=== PATIENT | female | born 1995 ===

== ENCOUNTER 2024-09-17 08:53 | Outpatient (AMB) | payer MEDICAID, SELFPAY ==
[2024-09-17 09:00] VITALS: BP 105/62; PULSE 60; RESP 16; TEMP 36.1; O2SAT 99; BMI 30.7
--- NOTE | 2024-09-17 09:00 | OBCLNT_ITS ---
Vital Signs 09/17/24 09:00 Height 1.55 m Height Method Stated Weight 73.652 kg Weight Measurement Method Standing Scale BMI 30.7 BP 105/62 Blood Pressure Source Automatic Cuff Blood Pressure Location Left Upper Arm Position Sitting Respiration 16 Pulse 60 Pulse Source Monitor Temp 97.0 F Temp Source Oral Pulse Oximetry (%) 99 Oxygen Delivery Method Room Air Allergies/Home Meds Allergies & Medications Allergies No Known Allergies Allergy (Verified 09/17/24 09:02) Medication Reconciliation prenat.vits,zaria,pye-jeqx-xiarn 1 tab PO QDAY 09/26/23 [History Confirmed 09/17/24] Intake Visit Data Collection New Patient or Established: Established Patient (seen at [facility] within 3 years) Reason for Visit:: New OB Visit Consent obtained for Telemed Visit: No Seen by Clinical Staff ONLY (RN/MA): No Quality Assurance Supervisor Final Required: No Do You Feel Safe at Home: Yes Authorities Contacted: N/A PCP or OBGYN visit in last 3 months: No Hx Now: Yes Are you currently on any form of Control: No Last menstrual period: 07/11/24 Pain Present Currently: No Pain Scale Used: Faustin-Sears/Numerical Pain scale:: 0 Smoking Status Smoking Status: Never smoker Questionnaires Covid-19 Vaccine Questionnaire Has patient been vacinated for Covid-19 Have you been vacinated for Covid-19: Yes PHQ-9 PHQ-2 Over the last 2 weeks, how often have you been bothered by any of the following problems? 1. Little interest or pleasure in doing things: not at all 2. Feeling down, depressed, or hopeless: not at all Total score: 0 Depression screen completed yes Social History Living Situation History Marital Status: Lives With: Family Housing: House Tobacco History Smoking Status: Never smoker Alcohol History Alcohol Intake: Never Alcohol Intake Frequency: holidays/special occasions only Domestic Abuse History Do You Feel Safe at Home: Yes Past Medical History Past Medical History Have you ever been diagnosed with any of the following: Neurological Problems Seizures: No Cardiology Problems Congestive Heart Failure: No Respiratory Problems Chronic Obstructive Pulmonary Disease (COPD): No Tuberculosis: No Stomache/Intestinal Problems Hepatitis: No Genital/Urinary Problems Renal Disease: No Reproductive Problems Endometriosis: No Genital Herpes: No Gonorrhea: No Pelvic Inflammatory Disease: No Previous Pregnancies: Yes (x2) Syphilis: No Uterine Prolapse: No Endocrine Problems Diabetes Mellitus Type 1: No Diabetes Mellitus Type 2: No Other Problems Hospitalization: No Down Syndrome: No Developmental Delay: No Shingles: No Falls: No Blood Transfusions: No Blood Transfusion Reaction: No Anesthesia Reactions: No Organ Transplant: No Chemotherapy: No Radiation Therapy: No Hyperbaric Therapy: No MRSA: No VRSA: No Vancomycin-Resistant Enterococci: No Human Immunodeficiency Virus (HIV): No Chicken Pox: No Measles: No Mumps: No Rubella (Bulgarian Measles): No Pertussis: No Clostridium Difficile: No Cancer: No History of Present Illness HPI Narrative Patient is presenting for her first visit and reports experiencing nausea during this . She has had two episodes of minor vaginal spotting, with no significant bleeding or other complications. This is her fourth , with three previous vaginal deliveries without complications. Patient is not currently taking vitamins and this is her first ultrasound of the current . She denies any history of diabetes, hypertension, or thyroid problems in previous pregnancies. Family history is significant for a cousin's child born with a left arm abnormality that required surgical intervention. OB Initial Visit Menstrual History Menstrual reliability: definite Flow: normal Menstrual regularity: regular Monthly: Yes Age at menarche: 13 On control pills at conception: No OB History : 4 Para: 3 # of Living Children: 3 Delivery History 1st : Child's name: otilio date: 07/13/13 sex: female Delivery type: vaginal weight (lbs): 7000 g History of depression before or after : No 2nd : Child's name: ZHANE date: 03/16/19 sex: male Delivery type: vaginal weight (lbs): 7000 g History of depression before or after : No 3rd : Child's name: COURTNEY date: 09/26/23 sex: female Delivery type: vaginal weight (lbs): 8000 g History of depression before or after : No Infection History & Risk Evaluation History of STDs: none HIV risk evaluation: low risk Hepatitis B risk evaluation: low risk Patient or partner has history of Genital Herpes: No Varicella/chicken pox status: immunized Genetic Screening & History Genetic Screening/Teratology Counseling - Includes patient, baby's father, or anyone in either family with: 1. Patient's age 35 years or older as of estimated date of delivery: No 2. Thalassemia (Slovenian, Slovak, Mediterranean, or Background); MCV less than 80: No 3. Neural Tube Defect (Meningomyelocele, Spina Bifida, or Anencephaly): No 4. Congenital Heart Defect: No 5. Down Syndrome: No 6. Donato-Sachs (Ashkenazi Restorationism, Cajun, [place]): No 7. Brie Disease (Ashkenazi Restorationism): No 8. Familial Dysautonomia (Ashkenazi Restorationism): No 9. Sickle Cell Disease or Trait (): No 10. Hemophilia or other blood disorders: No 11. Muscular Dystrophy: No 12. Cystic Fibrosis: No 13. Comal's Chorea: No 14. Mental Retardation/Autism: No 15. Other inherited genetic or chromosomal disorder: No 16. Maternal Metabolic Disorder (EG,TYPE 1 Diabetes, PKU): No 17. Patient or baby's father had a child with defects not listed above: No 18. Recurrent loss or a stillbirth: No 19. Medications (including supplements, vitamins, herbs or otc drugs)/illicit/recreational drugs/alcohol since last menstrual period: No 20. Any other: No Infection History 1. Live with someone with TB or exposed to TB: No 2. Rash or viral illness since last menstrual period: No 3. Hepatitis B,C: No Other (see comments) Source: [employer] Review of Systems Review of Systems Systems Reviewed: All systems reviewed, normal except as documented Exam General Limitations: no limitations General Appearance: alert, in no apparent distress, comfortable, cooperative, healthy appearing, well developed and well groomed Head Head exam: atraumatic, normocephalic and normal inspection Eye Eye exam: Present normal appearance, PERRL and EOMI ENT ENT exam: Present normal exam, normal oropharynx and mucous membranes moist Neck Neck exam: Present normal inspection, full ROM and trachea midline Chest Chest inspection: Present normal inspection and symmetric chest wall rise Abdominal Abdominal exam: Present soft and normal bowel sounds Extremities Extremities exam: Present normal inspection and full ROM Back Back exam: Present normal inspection and full ROM Psych Psychiatric exam: Present normal affect and normal mood Skin Skin exam: Present warm, dry, intact and normal color Assessment & Plan Diagnosis / Problem List (1) : Status: Acute Plan: : - at 9 weeks 2 days gestation based on ultrasound dating. - Patient reports mild nausea and two episodes of light spotting. - No history of gestational diabetes or hypertension in previous pregnancies. - Family history significant for cousin's child with left arm abnormality. - Current ultrasound shows normal development consistent with gestational age. - Patient not currently taking vitamins. - Prescribe antiemetics for nausea. - Prescribe vitamins. - Order routine laboratory tests. - Schedule follow-up appointment in 4 weeks to review lab results. - Provide ultrasound images to patient. Office Procedures OB Clinic LOC & Office Proc's Nursing/Assessment Patient Status: Initial/New Patient OB Clinic Nursing Assessment: BP Monitoring, Medication Reconciliation, Update PMH in EMR and Vital Signs OB Clinic Coordination of Care: Consent,records obtained, informed consent, Education Simp Pt/Fam, Lab and Imaging orders and Staff clarify orders Special Needs: Heart tones New Patient Charge New Patient Point Assignment: [id number] Established Patient Charge Established Patient Point Charge: EP Level 4 (120-155) Antepartum Initial or Follow-up Antepartum Initial Visit: Yes
== END 2024-09-17 09:53 | disposition home or self-care (01) ==
LOC: HODSOBC 08:53
PROVIDERS: PCP Obstetrics & Gynecology; Supervising Provider Obstetrics & Gynecology; Visit Provider Obstetrics & Gynecology
DX: O26.851 Spotting complicating pregnancy, first trimester (principal); Z3A.09 9 weeks gestation of pregnancy
CPT/HCPCS: 99214; G0463

== ENCOUNTER 2024-10-05 20:21 | Emergency (ER) | payer MEDICAID, SELFPAY ==
[2024-10-05 20:24] VITALS: BMI 31.4
[2024-10-05 20:35] VITALS: BP 106/69; PULSE 72; RESP 18; TEMP 36.7; O2SAT 98
--- NOTE | 2024-10-05 20:41 | XR_ITS ---
Examination: Complete OB ultrasound, less than 14 weeks, transabdominal Date and time of exam: October 04, 2024, 20 0132 hrs. Indications: Vaginal bleeding beginning today Technique: Obstetrical ultrasound images less than 14 weeks performed via transabdominal imaging Findings: A normal shaped single intrauterine gestation is present in the uterus. CRL 5.8 cm corresponds to 12 weeks 2 days gestational age Cardiac motion 153 BPM Ultrasonographic survey of visible and placental structures unremarkable. Amniotic fluid volume appears appropriate for this estimated gestational age. Right ovary 3.1 cm arterial flow Left ovary 2.1 cm arterial flow Impression: Viable intrauterine gestation 12 weeks 2 days.
--- NOTE | 2024-10-05 20:42 | EDNOTE_ITS ---
ED OB Contraction Preg RMI/HPI General Chief complaint: Vaginal Bleeding Stated complaint: 13 wks preg bleeding Time Seen by Provider: 10/05/24 20:40 Arrival date/time: 10/05/24 20:21 28F at approximately 13 weeks and with no significant PMH presents to ED with 2 days of vaginal spotting. Patient denies pelvic pain and dysuria. Limitations: no limitations Related Data Home Medications ?Medication ?Instructions ?Recorded ?Confirmed prenat.vits,zaria,cnx-[id number]-[id number] 1 tab PO QDAY 09/26/23 09/17/24 Previous Rx's ?Medication ?Instructions ?Recorded ondansetron 4 mg disintegrating 4 mg PO Q6H PRN nausea and 09/27/24 tablet vomiting 30 days #120 tabs vitamins no.121-iron 28 1 tab PO QDAY 90 days #90 tabs 09/27/24 mg-folic acid 800 mcg tablet Allergies Allergy/AdvReac Type Severity Reaction Status Date / Time No Known Allergies Allergy Verified 10/05/24 20:27 Review of Systems Review of Systems Systems Reviewed: All systems reviewed, normal except as documented Constitutional Constitutional: Reports system reviewed and no additional complaints, except as documented, Denies fever(s) and Denies headache(s) ENT Ears, Nose, Mouth, and Throat: Denies disequilibrium and Denies headache(s) Cardiovascular Cardiovascular: Reports system reviewed and no additional complaints, except as documented, Denies chest pain and Denies dyspnea Respiratory Respiratory: Reports system reviewed and no additional complaints, except as documented, Denies cough and Denies dyspnea Gastrointestinal Gastrointestinal: Reports system reviewed and no additional complaints, except as documented, Denies abdominal pain, Denies nausea and Denies vomiting Genitourinary Genitourinary: Reports as per HPI and Reports abnormal vaginal bleeding Neurologic Neurologic: Reports system reviewed and no additional complaints, except as documented, Denies confusion, Denies disequilibrium and Denies headache(s) Psychiatric Psychiatric: Denies confusion Past Medical History Past Medical History NEUROLOGIC: Negative Neurological Disorders or Seizures CARDIAC: Negative Cardiac Disorders or Congestive Heart Failure RESPIRATORY: Negative Chronic Obstructive Pulmonary Disease (COPD) or Tuberculosis GASTROINTESTINAL: Negative Gastrointestinal Disorders or Hepatitis GENITOURINARY: Negative Genitourinary Disorders or Renal Disease REPRODUCTIVE: Positive Previous Pregnancies (x2); Negative Endometriosis, Genital Herpes, Gonorrhea, Pelvic Inflammatory Disease, Syphilis or Uterine Prolapse MUSCULOSKELETAL: Negative Musculoskeletal Disorders ENDOCRINE: Negative Endocrine Disorders, Diabetes Mellitus Type 1 or Diabetes Mellitus Type 2 HEMATOLOGIC: Negative Blood Disorders OTHER HISTORY: Negative Hospitalization, Autoimmune Disease, Down Syndrome, Developmental Delay, Shingles, Falls, Blood Transfusions, Blood Transfusion Reaction, Anesthesia Reactions, Organ Transplant, Chemotherapy, Radiation Therapy, Hyperbaric Therapy, MRSA, VRSA, Vancomycin-Resistant Enterococci, Human Immunodeficiency Virus (HIV), Chicken Pox, Measles, Mumps, Rubella (Slovenian Measles), Pertussis, Clostridium Difficile or Cancer Family History FAMILY HISTORY: Negative Family Psychiatric Problems, Family Respiratory Disorders, Family Cardiac Disorders, Family Gastrointestinal Problems, Family Cancer, Family Surgery or Family Anesthesia Reaction Surgical History SURGICAL: Negative Section or Organ Transplant Social History SMOKING STATUS: Never smoker ED Exam General Limitations: Present no limitations General appearance: Present alert and in no apparent distress Head Head exam: Present atraumatic Eye Eye exam: Present normal appearance, PERRL and EOMI ENT ENT exam: Present normal exam, normal oropharynx and mucous membranes moist Neck Neck exam: Present normal inspection, full ROM and trachea midline Chest Chest inspection: Present normal inspection and symmetric chest wall rise Respiratory Respiratory exam: Present normal lung sounds bilaterally Cardiovascular Cardiovascular exam: Present regular rate, normal rhythm and normal heart sounds Abdominal Exam Abdominal exam: Present soft and normal bowel sounds Extremities Exam Extremities exam: Present normal inspection and full ROM Back Exam Back exam: Present normal inspection and full ROM Neurological Exam Neurological exam: Present alert, oriented X3 and CN II-XII intact Psychiatric Psychiatric exam: Present normal affect and normal mood Skin Skin exam: Present warm, dry, intact and normal color Course Quality Measures none Orders Category Date Time Status US OB <= 14 weeks fetus Stat Exams 10/05/24 20:41 Completed ABO/RH Type Stat Lab 10/05/24 20:48 Completed Beta HCG,Quantitative Stat Lab 10/05/24 20:48 Completed CBC Stat Lab 10/05/24 20:48 Completed CMP [Comprehensive Metabolic Panel] Stat Lab 10/05/24 20:48 Completed UA [Urinalysis] Stat Lab 10/05/24 21:49 Completed Urine Culture Stat Lab 10/05/24 21:49 Received Vital Signs Vital signs: Vital Signs Temperature 98.1 F 10/05/24 20:35 Pulse Rate 72 10/05/24 20:35 Respiratory Rate 18 10/05/24 20:35 Blood Pressure 106/69 10/05/24 20:35 Pulse Oximetry (%) 98 10/05/24 20:35 Oxygen Delivery Method Room Air 10/05/24 20:35 O2 at 98% on RA and WNLs Vaginal Bleeding MDM Narrative MDM Narrative: 28F at approximately 13 weeks and with no significant PMH presents to ED with 2 days of vaginal spotting. Patient denies pelvic pain and dysuria. Physical exam reveals no ab/pelvic tenderness. Patient is afebrile, calm, and alert. US normal IUP with normal FHR. Beta WNLs. UA clean. CMP unremarkable. A+. Moving Consultant given. Patient data External records reviewed:: [facility] previous records Clinical information provided by:: patient Social determinants that could affect healthcare access:: none Patient has the following chronic illnesses:: none How is presenting disease/condition affected by chronic disease/condition?: no chronic disease Evaluation data The following diagnostics were reviewed and interpreted by me:: lab results and radiology exam(s) Lab and/or radiology exams considered but not ordered:: ordered Interpretation Summary: above Medications / Prescriptions Medications or Prescriptions considered but not ordered:: not ordered Medication administrations:: n/a Consultations Consultation(s) initiated? (list below): No Diagnosis Vaginal Bleeding Differential Diagnosis: missed , threatened , dysfunctional uterine bleeding, menometrorrhagia, incomplete , ectopic without intrauterine and vaginal bleeding Most likely diagnosis given after review of the tests above:: vaginal bleeding Admission Indicated Admission indicated?: not indicated Admission Request Was there a request for admission?: No Disposition Plan Disposition Plan: Discharge Discharge Attestation Discharge Attestation: The patient and all family members were given an opportunity to ask questions and understood the discharge instructions. Discharge instructions specifically effects, indications for sooner follow up or return to the emergency department, and the expected course of current diagnosis. Patient condition: Stable Discharge Plan Plan Patient Disposition: HOME (Self Care) Disposition Comment: Stable Prescriptions/Referrals Prescriptions/Med Rec: No Action PNV no.179-ngyn-[id number] acid 28 mg iron- 800 mcg tablet 1 tab PO QDAY 90 Days Qty: 90 5RF ondansetron 4 mg tablet,disintegrating 4 mg PO Q6H PRN (Reason: nausea and vomiting) 30 Days Qty: 120 1RF Vitamin Tablet 1 tab PO QDAY Referrals: No Primary/Family,Physician [Primary Care Provider] - In 1 week Problem List Clinical Impression: Vaginal bleeding Patient/Caregiver Discharge Instructions Additional Instructions: Please follow-up with PCP/OBGYN within 24-48 hours and return immediately if symptoms worsen. Print Language: Yi Stand Alone Forms: Patient Portal Info Letter PA/NEUROLOGY EPILEPSY PHYSICIAN Supervising Physician PA/NEUROLOGY EPILEPSY PHYSICIAN Supervising Physician: Dr. Kahn
[2024-10-05 21:22] LABS: Basophils % (Auto) 0 % (0-2.5); Eosinophils # (Auto) 0.1 Thou/mm3 (0.0-0.5); Eosinophils % (Auto) 1 % (0-10); Hematocrit 37.2 % (36.0-46.0); Hemoglobin 12.7 g/dL (12.0-16.0); Immature Granulocytes % (Auto) 0 % (0-0); Immature Granulocytes Auto 0.02 Thou/mm3 (0.00-0.00); Lymphocytes # (Auto) 2.9 Thou/mm3 (1.0-4.8); Lymphocytes % (Auto) 30 % (10-50); Mean Corpuscular HGB Conc 34.1 g/dl (31.0-37.0); Mean Corpuscular Hemoglobin 28.5 pg (25.0-35.0); Mean Corpuscular Volume 84 fL (80-100); Monocytes # (Auto) 0.7 Thou/mm3 (0.0-0.8); Monocytes % (Auto) 7 % (0-12); Neutrophils # (Auto) 5.9 Thou/mm3 (1.8-7.7); Neutrophils % (Auto) 61 % (37-80); Nucleated Red Blood Cell % 0 /100 WBC (0); Platelet Count 224 Thou/mm3 (140-440); RDW Standard Deviation 40.9 fL (36.4-46.3); Red Blood Count 4.45 Miln/mm3 (4.00-5.20); White Blood Count 9.7 Thou/mm3 (3.6-11.0)
[2024-10-05 21:38] LABS: Alanine Aminotransferase 12 U/L (10-49); Albumin/Globulin Ratio 1.3 (1.2-2.2); Alkaline Phosphatase 45 U/L (46-116); Anion Gap 8 (7-16); Aspartate Amino Transferase 16 U/L (0-34); BUN/Creatinine Ratio 20 Ratio (12-20); Bilirubin,Total 0.3 mg/dL (0.3-1.2); Blood Urea Nitrogen 10 mg/dL (9-23); Calcium 9.5 mg/dL (8.3-10.6); Calcium (Corrected) 9.5 mg/dL (8.5-10.1); Carbon Dioxide 23.8 mMol/L (20.0-31.0); Chloride 107 mMol/L (98-107); Creatinine (Component) 0.5 mg/dL (0.6-1.3); Estimated Creatinine Clearance 156.9 mL/min (>60); Glucose 107 mg/dL (74-106); Osmolality,Calculated 276 (275-295); Potassium 4.3 mMol/L (3.4-5.1); Sodium 139 mMol/L (136-145); eGFR > 60 See Note
[2024-10-05 21:53] LABS: Collection Type, Urine Clean Catch; RBC,Urine 0 /hpf (0-3); WBC,Urine 0 /hpf (0-5)
[2024-10-05 22:02] LABS: Bacteria,Urine Rare; Bilirubin,Urine Negative (Negative); Blood,Urine Negative (Negative); Clarity,Urine Clear (Clear/Hazy); Color,Urine Lt-Yellow (Lt Yel-Yel); Glucose, Urine Negative (Negative); Ketones,Urine Negative (Negative); Leukocyte Esterase,Urine Negative (Negative); Nitrite,Urine Negative (Negative); PH,Urine 6.5 (5.0-7.0); Protein,Urine Negative (Neg - Trace); Squamous Epithelial Cell,Urine 4 /hpf (0-5); Urobilinogen,Urine Negative mg/dL (0.0-1.0)
[2024-10-05 22:19] LABS: Beta HCG,Quantitative 89767 mIU/mL (<5.0)
== END 2024-10-05 22:54 | disposition home or self-care (01) ==
PROVIDERS: Physician Assistant; Emergency Provider Emergency Medicine
DX: O20.9 Hemorrhage in early pregnancy, unspecified (principal); Z3A.13 13 weeks gestation of pregnancy
CPT/HCPCS: 36415; 76801; 80053; 81001; 84702; 85025; 86900; 86901; 87086; 99284

== ENCOUNTER 2024-10-14 09:11 | Outpatient (AMB) | payer MEDICAID, SELFPAY ==
--- NOTE | 2024-10-14 09:24 | OBCLNT_ITS ---
Vital Signs 10/14/24 09:25 Height 1.55 m Height Method Stated Weight 74.389 kg Weight Measurement Method Standing Scale BMI 30.9 BP 105/70 Blood Pressure Source Automatic Cuff Blood Pressure Location Left Upper Arm Position Sitting Respiration 16 Pulse 84 Pulse Source Monitor Temp 97.2 F Temp Source Oral Pulse Oximetry (%) 96 Oxygen Delivery Method Room Air Allergies/Home Meds Allergies & Medications Allergies No Known Allergies Allergy (Verified 10/14/24 09:25) Medication Reconciliation prenat.vits,zaria,[id number] 1 tab PO QDAY 09/26/23 [History Confirmed 10/14/24] ondansetron 4 mg disintegrating tablet 4 mg PO Q6H PRN nausea and vomiting 30 days #120 tabs 09/27/24 [Rx Confirmed 10/14/24] vitamins no.121-iron 28 mg-folic acid 800 mcg tablet 1 tab PO QDAY 90 days #90 tabs 09/27/24 [Rx Confirmed 10/14/24] Intake Visit Data Collection New Patient or Established: Established Patient (seen at [facility] within 3 years) Reason for Visit:: OBC Seen by Clinical Staff ONLY (RN/MA): No Magnetic Locater Required: No Do You Feel Safe at Home: Yes Authorities Contacted: N/A PCP or OBGYN visit in last 3 months: No Hx Now: Yes Are you currently on any form of Control: No Last menstrual period: 09/17/24 Pain Present Currently: No Pain Scale Used: Faustin-Sears/Numerical Pain scale:: 0 Smoking Status Smoking Status: Never smoker Questionnaires Covid-19 Vaccine Questionnaire Has patient been vacinated for Covid-19 Have you been vacinated for Covid-19: No PHQ-9 PHQ-2 Over the last 2 weeks, how often have you been bothered by any of the following problems? 1. Little interest or pleasure in doing things: not at all 2. Feeling down, depressed, or hopeless: not at all Total score: 0 PHQ-9 3. Trouble falling or staying asleep, or sleeping too much: Not at all 4. Feeling tired or having little energy: Not at all 5. Poor appetite or overeating: Not at all 6. Feeling bad about yourself - or that you are a failure or have let yourself or your family down: Not at all 7. Trouble concentrating on things, such as reading the newspaper or watching television: Not at all 8. Moving or speaking so slowly that other people could have noticed? - Or the opposite - being so fidgety or restless that you have been moving around a lot more than usual: not at all 9. Thoughts that you would be better off or of hurting yourself in some way: Not at all Total score: 0 If you checked off any problems, how difficult have these problems made it for you to do your work, take care of things at home, or get along with other people?: not difficult at all Source: Developed by Drs. Patrick Nelson, Traci Gunter, Mayo Fang and colleagues, with an educational daphney from [employer]. Depression screen completed yes Social History Living Situation History Lives With: Family Housing: House Tobacco History Smoking Status: Never smoker Alcohol History Alcohol Intake: Never Alcohol Intake Frequency: holidays/special occasions only Domestic Abuse History Do You Feel Safe at Home: Yes Past Medical History Past Medical History Have you ever been diagnosed with any of the following: Neurological Problems Seizures: No Cardiology Problems Congestive Heart Failure: No Respiratory Problems Chronic Obstructive Pulmonary Disease (COPD): No Tuberculosis: No Stomache/Intestinal Problems Hepatitis: No Genital/Urinary Problems Renal Disease: No Reproductive Problems Endometriosis: No Genital Herpes: No Gonorrhea: No Pelvic Inflammatory Disease: No Previous Pregnancies: Yes (x2) Syphilis: No Uterine Prolapse: No Endocrine Problems Diabetes Mellitus Type 1: No Diabetes Mellitus Type 2: No Other Problems Hospitalization: No Down Syndrome: No Developmental Delay: No Shingles: No Falls: No Blood Transfusions: No Blood Transfusion Reaction: No Anesthesia Reactions: No Organ Transplant: No Chemotherapy: No Radiation Therapy: No Hyperbaric Therapy: No MRSA: No VRSA: No Vancomycin-Resistant Enterococci: No Human Immunodeficiency Virus (HIV): No Chicken Pox: No Measles: No Mumps: No Rubella (Tajik Measles): No Pertussis: No Clostridium Difficile: No Cancer: No History of Present Illness HPI Narrative History of Present Illness Yoly Bernal, a 28-year-old , presents for a visit at 13 weeks and 1 day gestation based on an estimated due date of 04/20/2025. She had an initial visit at 9 weeks gestation. Subsequently, at 12 weeks and 2 days gestation (10/05/2024), she presented to the ER with an episode of vaginal bleeding. At that time, ultrasound confirmed a viable intrauterine with cardiac activity of 153 bpm, and the overall ultrasound was reported as normal. The patient underwent NIPT (Non-Invasive Testing) on 09/21/2024, which was negative for trisomies 21, 18, and 13. The test also indicated gender consistent with male. No CTX/LOF/VB Review of Systems Review of Systems Systems Reviewed: All systems reviewed, normal except as documented Visit DERREK Calculator Estimated Delivery Date Method Current WG Current Estimate 04/20/25 Ultrasound #1 14w 5d Other Estimates 04/17/25 LMP (Uncertain) 15w 1d Exam General Limitations: no limitations General Appearance: alert, in no apparent distress, comfortable, cooperative, healthy appearing, well developed and well groomed Head Head exam: atraumatic, normocephalic and normal inspection Neck Neck exam: Present normal inspection, full ROM and trachea midline Chest Chest inspection: Present normal inspection and symmetric chest wall rise Abdominal Abdominal exam: Present soft and normal bowel sounds Extremities Extremities exam: Present normal inspection and full ROM Back Back exam: Present normal inspection and full ROM Psych Psychiatric exam: Present normal affect and normal mood Skin Skin exam: Present warm, dry, intact and normal color Assessment & Plan Diagnosis / Problem List (1) Supervision of high risk , unspecified, first trimester: Status: Acute Plan: Intrauterine at 13 weeks 1 day gestation 28-year-old patient presenting for visit at 13 weeks 1 day gestation based on DERREK of 04/20/2025. Patient had an episode of vaginal bleeding at 12 weeks 2 days, evaluated in ER on 10/05/2024. ER ultrasound showed viable intrauterine with cardiac activity of 153 bpm and overall normal findings. Current office ultrasound demonstrates heartbeat of 156 bpm. NIPT results negative for trisomies 21, 18, and 13. gender consistent with male. - Follow-up appointment scheduled in 4 weeks - Detailed ultrasound with specialist (Dr. Tuttle) scheduled for tomorrow - Await specialist ultrasound report for further assessment (2) : Status: Acute Additional Assessment Educated the patient on labor signs, including regular contractions, lower back pain, and changes in vaginal discharge. Advised avoiding heavy lifting and getting adequate rest. Instructed to contact the office immediately if any signs occur. Discussed the importance of a balanced diet rich in folic acid, iron, and calcium, and provided a list of recommended and to-avoid foods. Emphasized avoiding high-sugar foods to reduce gestational diabetes risk. Encouraged hydration and frequent, small meals for energy. Office Procedures OB Clinic LOC & Office Proc's Nursing/Assessment Patient Status: Established Patient OB Clinic Nursing Assessment: BP Monitoring, Medication Reconciliation, Update PMH in EMR and Vital Signs OB Clinic Coordination of Care: Consent,records obtained, informed consent, Results/Orders obtained and Staff clarify orders Special Needs: Heart tones Miscellaneous Interventions: Blood/Urine Collection Established Patient Charge Established Patient Point Assignment: 125 Established Patient Point Charge: EP Level 4 (120-155)
[2024-10-14 09:25] VITALS: BP 105/70; PULSE 84; RESP 16; TEMP 36.2; O2SAT 96; BMI 30.9
== END 2024-10-14 09:54 | disposition home or self-care (01) ==
LOC: HODSOBC 09:11
PROVIDERS: Supervising Provider Obstetrics & Gynecology; Visit Provider Obstetrics & Gynecology
DX: O09.91 Supervision of high risk pregnancy, unspecified, first trimester (principal); Z3A.13 13 weeks gestation of pregnancy
CPT/HCPCS: 99214; G0463

== ENCOUNTER 2024-11-13 10:07 | Outpatient (AMB) | payer MEDICAID, SELFPAY ==
--- NOTE | 2024-11-13 10:17 | OBCLNT_ITS ---
Vital Signs 11/13/24 10:38 Height 1.55 m Height Method Stated Weight 73.992 kg Weight Measurement Method Standing Scale BMI 30.8 BP 104/64 Blood Pressure Source Automatic Cuff Blood Pressure Location Left Upper Arm Position Sitting Respiration 18 Pulse 70 Pulse Source Monitor Temp 97.2 F Temp Source Oral Pulse Oximetry (%) 98 Oxygen Delivery Method Room Air Allergies/Home Meds Allergies & Medications Allergies No Known Allergies Allergy (Verified 11/13/24 10:39) Medication Reconciliation prenat.vits,zaria,[id number]-[id number] 1 tab PO QDAY 09/26/23 [History Confirmed 11/13/24] ondansetron 4 mg disintegrating tablet 4 mg PO Q6H PRN nausea and vomiting 30 days #120 tabs 09/27/24 [Rx Confirmed 11/13/24] vitamins no.121-iron 28 mg-folic acid 800 mcg tablet 1 tab PO QDAY 90 days #90 tabs 09/27/24 [Rx Confirmed 11/13/24] Intake Visit Data Collection New Patient or Established: Established Patient (seen at [facility] within 3 years) Reason for Visit:: OBC Seen by Clinical Staff ONLY (RN/MA): No Retail Management Keyholder Required: No Do You Feel Safe at Home: Yes Authorities Contacted: N/A PCP or OBGYN visit in last 3 months: Yes Date of Last PCP or OBGYN visit: 10/14/24 Hx Now: Yes Are you currently on any form of Control: No Pain Present Currently: No Pain Scale Used: Faustin-Sears/Numerical Pain scale:: 0 Smoking Status Smoking Status: Never smoker Questionnaires PHQ-9 PHQ-2 Over the last 2 weeks, how often have you been bothered by any of the following problems? 1. Little interest or pleasure in doing things: not at all 2. Feeling down, depressed, or hopeless: not at all Total score: 0 PHQ-9 3. Trouble falling or staying asleep, or sleeping too much: Not at all 4. Feeling tired or having little energy: Not at all 5. Poor appetite or overeating: Not at all 6. Feeling bad about yourself - or that you are a failure or have let yourself or your family down: Not at all 7. Trouble concentrating on things, such as reading the newspaper or watching television: Not at all 8. Moving or speaking so slowly that other people could have noticed? - Or the opposite - being so fidgety or restless that you have been moving around a lot more than usual: not at all 9. Thoughts that you would be better off or of hurting yourself in some way: Not at all Total score: 0 If you checked off any problems, how difficult have these problems made it for you to do your work, take care of things at home, or get along with other people?: not difficult at all Source: Developed by Drs. Patrick Nelson, Traci Gunter, Mayo Fang and colleagues, with an educational daphney from [employer]. Depression screen completed yes Social History Living Situation History Marital Status: Single Lives With: Family Housing: House Tobacco History Smoking Status: Never smoker Alcohol History Alcohol Intake: Never Alcohol Intake Frequency: holidays/special occasions only Domestic Abuse History Do You Feel Safe at Home: Yes Past Medical History Past Medical History Have you ever been diagnosed with any of the following: Neurological Problems Seizures: No Cardiology Problems Congestive Heart Failure: No Respiratory Problems Chronic Obstructive Pulmonary Disease (COPD): No Tuberculosis: No Stomache/Intestinal Problems Hepatitis: No Genital/Urinary Problems Renal Disease: No Reproductive Problems Endometriosis: No Genital Herpes: No Gonorrhea: No Pelvic Inflammatory Disease: No Previous Pregnancies: Yes (x2) Syphilis: No Uterine Prolapse: No Endocrine Problems Diabetes Mellitus Type 1: No Diabetes Mellitus Type 2: No Other Problems Hospitalization: No Down Syndrome: No Developmental Delay: No Shingles: No Falls: No Blood Transfusions: No Blood Transfusion Reaction: No Anesthesia Reactions: No Organ Transplant: No Chemotherapy: No Radiation Therapy: No Hyperbaric Therapy: No MRSA: No VRSA: No Vancomycin-Resistant Enterococci: No Human Immunodeficiency Virus (HIV): No Chicken Pox: No Measles: No Mumps: No Rubella (Israeli Measles): No Pertussis: No Clostridium Difficile: No Cancer: No Visit OB Visit Log OB Flowsheet Initial Weight: Not Recorded Date -?-?-?-?-?-?-?-?-?-?-?-?- EGA Weight Edema CTX Effacement BP Fundal ht Pres Dilation Effacement Station Visit Note Alb Glu FHR Mov 11/13/24 -?-?-?-?-?-?-?-?-?-?-?-?- 17w 3d 73.992 kg absent absent 104/64 17 unknown 28-year-old 4 para 3 for OB check. Denies any SAB complaints. Reports slight movement. Nausea and vomiting are improved. Compliant with vitamins. Next MFM visit December 03, 2024. aFP today. Return in 4 weeks OB check. UA:pro-,NIT-,francesca:trace 125 active DERREK Calculator Estimated Delivery Date Method Current WG Current Estimate 04/20/25 Ultrasound #1 17w 3d Other Estimates 04/17/25 LMP (Uncertain) 17w 6d Expected Delivery Route/Plan vaginal Assessment & Plan Diagnosis / Problem List (1) Encounter for supervision of normal in multigravida in second trimester: Status: Acute Plan Continue vitamins and iron. Discussed diet. Decrease sugary foods. Walk 40 minutes a day. Discussed SAB precautions. Keep maternal- medicine appointment November. Return in 4 weeks OB check Additional Plan Follow Up: 4 Weeks (4 wk OBC) Office Procedures OB Clinic LOC & Office Proc's Nursing/Assessment Patient Status: Established Patient OB Clinic Nursing Assessment: BP Monitoring, Medication Reconciliation, Update PMH in EMR and Vital Signs OB Clinic Coordination of Care: Education Complex Pt/Fam, Education Simp Pt/Fam and Staff clarify orders Special Needs: Heart tones Established Patient Charge Established Patient Point Assignment: 120 Established Patient Point Charge: EP Level 4 (120-155)
[2024-11-13 10:38] VITALS: BP 104/64; PULSE 70; RESP 18; TEMP 36.2; O2SAT 98; BMI 30.8
== END 2024-11-13 10:48 | disposition home or self-care (01) ==
LOC: HODSOBC 10:07
PROVIDERS: PCP Obstetrics & Gynecology; Referring Provider Obstetrics & Gynecology; Supervising Provider Obstetrics & Gynecology; Visit Provider Obstetrics & Gynecology
DX: Z34.82 Encounter for supervision of other normal pregnancy, second trimester (principal); Z3A.17 17 weeks gestation of pregnancy
CPT/HCPCS: 99214; G0463

== ENCOUNTER 2024-12-17 14:29 | Outpatient (AMB) | payer MEDICAID, SELFPAY ==
[2024-12-17 15:17] VITALS: BP 101/63; PULSE 77; RESP 18; TEMP 36.1; O2SAT 97; BMI 32.0
--- NOTE | 2024-12-17 15:17 | OBCLNT_ITS ---
Vital Signs 12/17/24 15:17 Height 1.55 m Height Method Stated Weight 76.884 kg Weight Measurement Method Standing Scale BMI 32.0 BP 101/63 Blood Pressure Source Automatic Cuff Blood Pressure Location Left Upper Arm Position Sitting Respiration 18 Pulse 77 Pulse Source Monitor Temp 97 F Temp Source Oral Pulse Oximetry (%) 97 Oxygen Delivery Method Room Air Allergies/Home Meds Allergies & Medications Allergies No Known Allergies Allergy (Verified 12/17/24 15:18) Medication Reconciliation prenat.vits,zaria,rvh-ijkb-hiday 1 tab PO QDAY 09/26/23 [History Confirmed 12/17/24] ondansetron 4 mg disintegrating tablet 4 mg PO Q6H PRN nausea and vomiting 30 days #120 tabs 09/27/24 [Rx Confirmed 12/17/24] vitamins no.121-iron 28 mg-folic acid 800 mcg tablet 1 tab PO QDAY 90 days #90 tabs 09/27/24 [Rx Confirmed 12/17/24] Intake Visit Data Collection New Patient or Established: Established Patient (seen at [facility] within 3 years) Reason for Visit:: OBC Seen by Clinical Staff ONLY (RN/MA): No Door Frame Builder Required: No Do You Feel Safe at Home: Yes Authorities Contacted: N/A PCP or OBGYN visit in last 3 months: Yes Date of Last PCP or OBGYN visit: 11/13/24 Hx Now: Yes Are you currently on any form of Control: No Pain Present Currently: No Pain Scale Used: Faustin-Sears/Numerical Pain scale:: 0 Smoking Status Smoking Status: Never smoker Questionnaires Covid-19 Vaccine Questionnaire Has patient been vacinated for Covid-19 Have you been vacinated for Covid-19: Yes PHQ-9 PHQ-2 Over the last 2 weeks, how often have you been bothered by any of the following problems? 1. Little interest or pleasure in doing things: not at all 2. Feeling down, depressed, or hopeless: not at all Total score: 0 PHQ-9 3. Trouble falling or staying asleep, or sleeping too much: Not at all 4. Feeling tired or having little energy: Not at all 5. Poor appetite or overeating: Not at all 6. Feeling bad about yourself - or that you are a failure or have let yourself or your family down: Not at all 7. Trouble concentrating on things, such as reading the newspaper or watching television: Not at all 8. Moving or speaking so slowly that other people could have noticed? - Or the opposite - being so fidgety or restless that you have been moving around a lot more than usual: not at all 9. Thoughts that you would be better off or of hurting yourself in some way: Not at all Total score: 0 If you checked off any problems, how difficult have these problems made it for you to do your work, take care of things at home, or get along with other people?: not difficult at all Source: Developed by Drs. Patrick Nelson, Traci Gunter, Mayo Fang and colleagues, with an educational daphney from [employer]. 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 Denies any SAB complaints. Reports slight movement. Nausea and vomiting are improved. Compliant with vitamins. Next M visit December 03, 2024. aFP today. Return in 4 weeks OB check. UA:pro-,NIT-,francesca:trace 12/17/24 -?-?-?-?-?-?-?-?-?-?-?-?- 22w 5d 76.884 kg 101/63 absent unknown 22 155 active fetus active. no PTL complaints. denies bleeding,no ptl complaints ob panel. f/u mfm 02/16. discuss ptl symptom. increase fluid. 3rd tri lab [place] DERREK Calculator Estimated Delivery Date Method Current WG Current Estimate 04/17/25 Ultrasound #2 22w 5d Other Estimates 04/17/25 LMP (Uncertain) 22w 5d 04/20/25 Ultrasound #1 22w 2d Expected Delivery Route/Plan vaginal Notes Visit Date: 12/17/24 Last Updated by: Barbara Bee, ELAINA 28 yo. lmp 07/11/24. edc 04/17/25. NIPT and carrier screen wnl Office Procedures OB Clinic LOC & Office Proc's Nursing/Assessment Patient Status: Established Patient OB Clinic Nursing Assessment: Medication Reconciliation, Update PMH in EMR and Vital Signs OB Clinic Coordination of Care: Complex Care and Chronic Disease 1-5, Consent,records obtained, informed consent, Education Simp Pt/Fam, Lab and Imaging orders, Results/Orders obtained and Staff clarify orders Established Patient Charge Established Patient Point Assignment: 105 Established Patient Point Charge: EP Level 3 (80-115) Assessment & Plan Diagnosis / Problem List (1) Encounter for supervision of normal in multigravida in second trimester: Status: Acute Plan discuss PTL precaution. increase fluid. keep MFM f/u 02/16, 3rd tri labs [place]. rtc 4 week Additional Plan Follow Up: 4 Weeks (obc)
== END 2024-12-17 15:34 | disposition home or self-care (01) ==
LOC: HODSOBC 14:29
PROVIDERS: Supervising Provider Obstetrics & Gynecology; Visit Provider Advanced Practice Midwife
DX: Z34.82 Encounter for supervision of other normal pregnancy, second trimester (principal); Z3A.22 22 weeks gestation of pregnancy
CPT/HCPCS: 99213; G0463

== ENCOUNTER 2025-02-17 13:40 | Outpatient (AMB) | payer MEDICAID, SELFPAY ==
[2025-02-17 13:47] VITALS: BP 103/63; PULSE 79; RESP 17; TEMP 36.4; O2SAT 98; BMI 32.5
--- NOTE | 2025-02-17 13:47 | OBCLNT_ITS ---
Vital Signs 02/17/25 13:47 Height 1.55 m Height Method Stated Weight 78.075 kg Weight Measurement Method Standing Scale BMI 32.5 BP 103/63 Blood Pressure Source Automatic Cuff Blood Pressure Location Right Upper Arm Position Sitting Respiration 17 Pulse 79 Pulse Source Monitor Temp 97.6 F Temp Source Temporal Artery Scan Pulse Oximetry (%) 98 Oxygen Delivery Method Room Air Allergies/Home Meds Allergies & Medications Allergies No Known Allergies Allergy (Verified 02/17/25 13:48) Medication Reconciliation prenat.vits,zaria,ynw-ghaq-tlthu 1 tab PO QDAY 09/26/23 [History Confirmed 01/22 03/17] ondansetron 4 mg disintegrating tablet 4 mg PO Q6H PRN nausea and vomiting 30 days #120 tabs 09/27/24 [Rx Confirmed 02/17/25] vitamins no.121-iron 28 mg-folic acid 800 mcg tablet 1 tab PO QDAY 90 days #90 tabs 09/27/24 [Rx Confirmed 02/17/25] Intake Visit Data Collection New Patient or Established: Established Patient (seen at [facility] within 3 years) Reason for Visit:: OBC 31W4D Seen by Clinical Staff ONLY (RN/MA): No Laboratory Chemist Required: No Do You Feel Safe at Home: Yes Authorities Contacted: N/A PCP or OBGYN visit in last 3 months: Yes Date of Last PCP or OBGYN visit: 12/17/24 Hx Now: Yes Are you currently on any form of Control: No Pain Present Currently: No Pain Scale Used: Faustin-Sears/Numerical Pain scale:: 0 Smoking Status Smoking Status: Never smoker Questionnaires Covid-19 Vaccine Questionnaire Has patient been vacinated for Covid-19 Have you been vacinated for Covid-19: No PHQ-9 PHQ-2 Over the last 2 weeks, how often have you been bothered by any of the following problems? 1. Little interest or pleasure in doing things: not at all 2. Feeling down, depressed, or hopeless: not at all Total score: 0 PHQ-9 3. Trouble falling or staying asleep, or sleeping too much: Not at all 4. Feeling tired or having little energy: Not at all 5. Poor appetite or overeating: Not at all 6. Feeling bad about yourself - or that you are a failure or have let yourself or your family down: Not at all 7. Trouble concentrating on things, such as reading the newspaper or watching television: Not at all 8. Moving or speaking so slowly that other people could have noticed? - Or the opposite - being so fidgety or restless that you have been moving around a lot more than usual: not at all 9. Thoughts that you would be better off or of hurting yourself in some way: Not at all Total score: 0 If you checked off any problems, how difficult have these problems made it for you to do your work, take care of things at home, or get along with other people?: not difficult at all Source: Developed by Drs. Patrick Nelson, Traci Gunter, Mayo Fang and colleagues, with an educational daphney from [employer]. 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 Denies any SAB complaints. Reports slight movement. Nausea and vomiting are improved. Compliant with vitamins. Next MFM visit December 03, 2024. aFP today. Return in 4 weeks OB check. UA:pro-,NIT-,francesca:trace 12/17/24 -?-?-?-?-?-?-?-?-?-?-?-?- 22w 5d 76.884 kg 101/63 absent unknown 22 155 active fetus active. no PTL complaints. denies bleeding,no ptl complaints ob panel. f/u mfm 02/16. discuss ptl symptom. increase fluid. 3rd tri lab NV 02/17/25 -?-?-?-?-?-?-?-?-?-?--?-?- 31w 4d 78.075 kg 103/63 absent cephalic 30 145 active No OB complaints. Denies leaking bleeding or contractions. Reports good movement. Patient has a follow-up MFM appointment February 27. Patient declined Tdap today. No other OB complaints 3rd tri lab with A1c, f/u mfm 01/27/25. declined TDAP. discuss fkc. ptl precaution, hydrate. rtc 2 week DERREK Calculator Estimated Delivery Date Method Current WG Current Estimate 04/17/25 LMP (Uncertain) 31w 4d Other Estimates 04/20/25 Ultrasound #1 31w 1d 04/17/25 Ultrasound #2 31w 4d Expected Delivery Route/Plan vaginal Notes Visit Date: 12/17/24 Last Updated by: Barbara Bee, ELAINA 28 yo. lmp 07/11/24. edc 04/17/25. NIPT and carrier screen wnl Office Procedures OB Clinic LOC & Office Proc's Nursing/Assessment Patient Status: Established Patient OB Clinic Nursing Assessment: Medication Reconciliation, Update PMH in EMR and Vital Signs OB Clinic Coordination of Care: Complex Care and Chronic Disease 1-5, Consent,records obtained, informed consent, Education Simp Pt/Fam and Staff clarify orders Special Needs: Heart tones Established Patient Charge Established Patient Point Assignment: 115 Established Patient Point Charge: EP Level 3 (80-115) Assessment & Plan Diagnosis / Problem List (1) Encounter for supervision of normal in multigravida in third trimester: Status: Acute Plan Third trimester labs with A1c today. Patient declined Tdap. Follow-up MFM ultrasound. Discussed labor precautions labor precautions kick count increase fluids problems return in 2 weeks OB check Additional Plan Follow Up: 2 Weeks (OBC)
== END 2025-02-17 14:18 | disposition home or self-care (01) ==
LOC: HODSOBC 13:40
PROVIDERS: Supervising Provider Advanced Practice Midwife; Visit Provider Advanced Practice Midwife
DX: Z34.83 Encounter for supervision of other normal pregnancy, third trimester (principal); Z3A.31 31 weeks gestation of pregnancy; Z28.21 Immunization not carried out because of patient refusal
CPT/HCPCS: 99213; G0463

== ENCOUNTER 2025-02-28 15:33 | Outpatient (AMB) | payer MEDICAID, SELFPAY ==
--- NOTE | 2025-02-28 15:45 | OBCLNT_ITS ---
Vital Signs 02/28/25 15:46 Height 1.55 m Height Method Measured Weight 78.471 kg Weight Measurement Method Standing Scale BMI 32.6 BP 108/68 Blood Pressure Source Automatic Cuff Blood Pressure Location Right Upper Arm Position Sitting Respiration 17 Pulse 88 Pulse Source Monitor Temp 98.0 F Temp Source Temporal Artery Scan Pulse Oximetry (%) 98 Oxygen Delivery Method Room Air Allergies/Home Meds Allergies & Medications Allergies No Known Allergies Allergy (Verified 02/28/25 15:46) Medication Reconciliation prenat.vits,zaria,ayk-qyfq-pdyqn 1 tab PO QDAY 09/26/23 [History Confirmed ] ondansetron 4 mg disintegrating tablet 4 mg PO Q6H PRN nausea and vomiting 30 days #120 tabs 09/27/24 [Rx Confirmed 02/28/25] vitamins no.121-iron 28 mg-folic acid 800 mcg tablet 1 tab PO QDAY 90 days #90 tabs 09/27/24 [Rx Confirmed 02/28/25] nitrofurantoin monohydrate/macrocrystals 100 mg capsule (Macrobid) 100 mg PO BID 7 days #14 caps 02/28/25 [Rx Confirmed 02/28/25] Intake Visit Data Collection New Patient or Established: Established Patient [place] [facility] [place] Reason for Visit:: [facility] Consent obtained for Telemed Visit: No Seen by Clinical Staff ONLY (RN/MA): No Protection Specialist Required: No Do You Feel Safe at Home: Yes Authorities Contacted: N/A PCP or OBGYN visit in last 3 months: Yes Date of Last PCP or OBGYN visit: 02/17/25 Hx Now: Yes Are you currently on any form of Control: No Pain Present Currently: No Pain Scale Used: Faustin-Sears/Numerical Pain scale:: 0 Smoking Status Smoking Status: Never smoker Questionnaires Covid-19 Vaccine Questionnaire Has patient been vacinated for Covid-19 Have you been vacinated for Covid-19: No PHQ-9 PHQ-2 Over the last 2 weeks, how often have you been bothered by any of the following problems? 1. Little interest or pleasure in doing things: not at all PHQ-9 8. Moving or speaking so slowly that other people could have noticed? - Or the opposite - being so fidgety or restless that you have been moving around a lot more than usual: not at all Source: Developed by Drs. Patrick Nelson, Traci Gunter, Mayo Fang and colleagues, with an educational daphney from [employer]. 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 Denies any SAB complaints. Reports slight movement. Nausea and vomiting are improved. Compliant with vitamins. Next MFM visit December 03, 2024. aFP today. Return in 4 weeks OB check. UA:pro-,NIT-,francesca:trace 12/17/24 -?-?-?-?-?-?-?-?-?-?-?-?- 22w 5d 76.884 kg 101/63 absent unknown 22 155 active fetus active. no PTL complaints. denies bleeding,no ptl complaints ob panel. f/u mfm 02/16. discuss ptl symptom. increase fluid. 3rd tri lab NV 02/17/25 -?-?-?-?-?-?-?-?-?-?-?-?- 31w 4d 78.075 kg 103/63 absent cephalic 30 145 active No OB complaints. Denies leaking bleeding or contractions. Reports good movement. Patient has a follow-up MFM appointment February 27. Patient declined Tdap today. No other OB complaints 3rd tri lab with A1c, f/u [facility] 01/27/25. declined TDAP. discuss fkc. ptl precaution, hydrate. rtc 2 week 02/28/25 -?-?-?-?-?-?-?-?-?-?-?-?- 33w 1d 78.471 kg 108/68 absent cephalic 32 145 active No OB complaints. MFM appointment was in February 27. Reports good movement. Patient will do 3-hour GTT. I did discuss diet and GDM diet. Discussed kick count twice a day. I discussed GDM diet and weight. Patient to walk 40 minutes twice a day. Gave patient lab slip to do 3-hour GTT. Return in 2 weeks OB check DERREK Calculator Estimated Delivery Date Method Current WG Current Estimate 04/17/25 LMP (Uncertain) 33w 1d Other Estimates 04/20/25 Ultrasound #1 32w 5d 04/17/25 Ultrasound #2 33w 1d Expected Delivery Route/Plan vaginal Notes Visit Date: 02/28/25 Last Updated by: Barbara Bee CNM 02/26/25 sono: 32w6, EFW 48%, OB sono: A+, abs-, rpr;;nr, rub ni, HBSAG-,hiv-,HC-, GC/CT-, +ECOLI: tx with macrobid, 1hr gtt: 153 Visit Date: 12/17/24 Last Updated by: Barbara Bee CNM 28 yo. lmp 07/11/24. edc 04/17/25. NIPT and carrier screen wnl Office Procedures OB Clinic LOC & Office Proc's Nursing/Assessment Patient Status: Established Patient OB Clinic Nursing Assessment: Medication Reconciliation, Update PMH in EMR and Vital Signs OB Clinic Coordination of Care: Complex Care and Chronic Disease 1-5, Consent,records obtained, informed consent, Education Simp Pt/Fam, 4+ Authorizations needed, Lab and Imaging orders and Results/Orders obtained Special Needs: Heart tones Established Patient Charge Established Patient Point Assignment: 150 Established Patient Point Charge: EP Level 3 (80-115) Assessment & Plan Diagnosis / Problem List (1) Encounter for supervision of normal in multigravida in third trim alison: Status: Acute Plan Order 3-hour GTT. Discussed GDM diet. Increase exercise to 40 minutes a day. Discussed labor precautions. Increase fluids. Macrobid 100 twice daily ordered for positive UTI. Return in 2 weeks OB check Additional Plan Follow Up: 2 Weeks (obc)
[2025-02-28 15:46] VITALS: BP 108/68; PULSE 88; RESP 17; TEMP 36.7; O2SAT 98; BMI 32.6
== END 2025-02-28 16:00 | disposition home or self-care (01) ==
LOC: HODSOBC 15:33
PROVIDERS: Supervising Provider Advanced Practice Midwife; Visit Provider Advanced Practice Midwife
DX: O09.893 Supervision of other high risk pregnancies, third trimester (principal); Z3A.33 33 weeks gestation of pregnancy; O23.43 Unspecified infection of urinary tract in pregnancy, third trimester
CPT/HCPCS: 99213; G0463

== ENCOUNTER 2025-03-14 14:42 | Outpatient (AMB) | payer MEDICAID, SELFPAY ==
--- NOTE | 2025-03-14 15:04 | OBCLNT_ITS ---
Vital Signs 03/14/25 15:06 Height 1.55 m Height Method Stated Weight 79.492 kg Weight Measurement Method Standing Scale BMI 33.0 BP 105/64 Blood Pressure Source Automatic Cuff Blood Pressure Location Left Upper Arm Position Sitting Respiration 16 Pulse 71 Pulse Source Monitor Temp 97.7 F Temp Source Oral Pulse Oximetry (%) 98 Oxygen Delivery Method Room Air Allergies/Home Meds Allergies & Medications Allergies No Known Allergies Allergy (Verified 03/14/25 15:07) Medication Reconciliation prenat.vits,zaria,bsu-ztqj-jmcuq 1 tab PO QDAY 09/26/23 [History Confirmed 03/14/25] ondansetron 4 mg disintegrating tablet 4 mg PO Q6H PRN nausea and vomiting 30 days #120 tabs 09/27/24 [Rx Confirmed 03/14/25] vitamins no.121-iron 28 mg-folic acid 800 mcg tablet 1 tab PO QDAY 90 days #90 tabs 09/27/24 [Rx Confirmed 03/14/25] Intake Visit Data Collection New Patient or Established: Established Patient (seen at [facility] within 3 years) Reason for Visit:: CARE Seen by Clinical Staff ONLY (RN/MA): 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 1. Little interest or pleasure in doing things: not at all 2. Feeling down, depressed, or hopeless: not at all Total score: 0 PHQ-9 3. Trouble falling or staying asleep, or sleeping too much: Not at all 4. Feeling tired or having little energy: Not at all 5. Poor appetite or overeating: Not at all 6. Feeling bad about yourself - or that you are a failure or have let yourself or your family down: Not at all 7. Trouble concentrating on things, such as reading the newspaper or watching television: Not at all 8. Moving or speaking so slowly that other people could have noticed? - Or the opposite - being so fidgety or restless that you have been moving around a lot more than usual: not at all 9. Thoughts that you would be better off or of hurting yourself in some way: Not at all Total score: 0 Source: Developed by Drs. Patrick Nelson, Traci Gunter, Mayo Fang and colleagues, with an educational daphney from [employer]. 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 Denies any SAB complaints. Reports slight movement. Nausea and vomiting are improved. Compliant with vitamins. Next [facility] visit December 03, 2024. aFP today. Return in 4 weeks OB check. UA:pro-,NIT-,francesca:trace 12/17/24 -?-?-?-?-?-?-?-?-?-?-?-?- 22w 5d 76.884 kg 101/63 absent unknown 22 155 active fetus active. no PTL complaints. denies bleeding,no ptl complaints ob panel. f/u mfm 02/16. discuss ptl symptom. increase fluid. 3rd tri lab NV 02/17/25 -?-?-?-?-?-?-?-?-?-?-?-?- 31w 4d 78.075 kg 103/63 absent cephalic 30 145 active No OB complaints. Denies leaking bleeding or contractions. Reports good movement. Patient has a follow-up MFM appointment February 27. Patient declined Tdap today. No other OB complaints 3rd tri lab with A1c, f/u mfm 01/27/25. declined TDAP. discuss fkc. ptl precaution, hydrate. rtc 2 week 02/28/25 -?-?-?-?-?-?-?-?-?-?-?-?- 33w 1d 78.471 kg 108/68 absent cephalic 32 145 active No OB complaints. MFM appointment was in February 27. Reports good movement. Patient will do 3-hour GTT. I did discuss diet and GDM diet. Discussed kick count twice a day. I discussed GDM diet and weight. Patient to walk 40 minutes twice a day. Gave patient lab slip to do 3-hour GTT. Return in 2 weeks OB check 03/14/25 -?-?-?-?-?-?-?-?-?-?-?-?- 35w 1d 79.492 kg 105/64 occasional cephalic 34 145 active Reports good movement. Denies leaking, denies bleeding, denies contractions. 3-hour GTT is normal. Discussed GTT. Increase fluids. Discussed kick count twice a day. Discussed danger signs and symptoms ER precautions. GBS today DERREK Calculator Estimated Delivery Date Method Current WG Current Estimate 04/17/25 LMP (Uncertain) 35w 1d Other Estimates 04/20/25 Ultrasound #1 34w 5d 04/17/25 Ultrasound #2 35w 1d Expected Delivery Route/Plan vaginal Notes Visit Date: 03/14/25 Last Updated by: Barbara Bee CNM 03/14: 3hr gtt wnl Visit Date: 02/28/25 Last Updated by: Barbara Bee CNM 02/26/25 sono: 32w6, EFW 48%, OB sono: A+, abs-, rpr;;nr, rub ni, HBSAG-,hiv-,HC-, GC/CT-, +ECOLI: tx with macrobid, 1hr gtt: 153 Visit Date: 12/17/24 Last Updated by: Barbara Bee, ELAINA 28 yo. lmp 07/11/24. edc 04/17/25. NIPT and carrier screen wnl Office Procedures OB Clinic LOC & Office Proc's Nursing/Assessment Patient Status: Established Patient OB Clinic Nursing Assessment: Medication Reconciliation, Update PMH in EMR and Vital Signs OB Clinic Coordination of Care: Complex Care and Chronic Disease 1-5, Consent,records obtained, informed consent, Education Simp Pt/Fam, 1 Ins Authorization, Lab and Imaging orders, Results/Orders obtained and Staff clarify orders Special Needs: Heart tones Established Patient Charge Established Patient Point Assignment: 150 Established Patient Point Charge: EP Level 4 (120-155) Assessment & Plan Diagnosis / Problem List (1) Encounter for supervision of normal in multigravida in third trimester: Status: Acute Plan GBS today. Discussed 3-hour GTT. Increase fluids. Discussed diet and rest. Kick counts twice a day. Discussed PTL precautions. Return in 2 weeks OB check Additional Plan Follow Up: 2 Weeks (obc)
[2025-03-14 15:06] VITALS: BP 105/64; PULSE 71; RESP 16; TEMP 36.5; O2SAT 98; BMI 33.0
== END 2025-03-14 15:34 | disposition home or self-care (01) ==
LOC: HODSOBC 14:42
PROVIDERS: Supervising Provider Advanced Practice Midwife; Visit Provider Advanced Practice Midwife
DX: Z34.83 Encounter for supervision of other normal pregnancy, third trimester (principal); Z3A.35 35 weeks gestation of pregnancy; Z36.85 Encounter for antenatal screening for Streptococcus B
CPT/HCPCS: 99214; G0463

== ENCOUNTER 2025-04-09 14:31 | Outpatient (AMB) | payer MEDICAID, SELFPAY ==
[2025-04-09 14:56] VITALS: BP 111/69; PULSE 72; RESP 14; TEMP 36.6; O2SAT 98; BMI 33.7
--- NOTE | 2025-04-09 14:56 | OBCLNT_ITS ---
Vital Signs 04/09/25 14:56 Height 1.55 m Height Method Stated Weight 81.193 kg Weight Measurement Method Standing Scale BMI 33.7 BP 111/69 Blood Pressure Source Automatic Cuff Blood Pressure Location Left Upper Arm Position Sitting Respiration 14 Pulse 72 Pulse Source Monitor Temp 97.9 F Temp Source Oral Pulse Oximetry (%) 98 Oxygen Delivery Method Room Air Allergies/Home Meds Allergies & Medications Allergies No Known Allergies Allergy (Verified 04/09/25 14:57) Medication Reconciliation prenat.vits,zaria,yyf-jzvd-uhrck 1 tab PO QDAY 09/26/23 [History Confirmed 04/09/25] ondansetron 4 mg disintegrating tablet 4 mg PO Q6H PRN nausea and vomiting 30 days #120 tabs 09/27/24 [Rx Confirmed 04/09/25] vitamins no.121-iron 28 mg-folic acid 800 mcg tablet 1 tab PO QDAY 90 days #90 tabs 09/27/24 [Rx Confirmed 04/09/25] Intake Visit Data Collection New Patient or Established: Established Patient (seen at [facility] within 3 years) Reason for Visit:: CARE Seen by Clinical Staff ONLY (RN/MA): No Coil Taper Required: No Do You Feel Safe at Home: Yes Authorities Contacted: N/A PCP or OBGYN visit in last 3 months: Yes Hx Now: Yes Are you currently on any form of Control: No Pain Present Currently: No Pain Scale Used: [place]-Sears/Numerical Pain scale:: 0 Smoking Status Smoking Status: Never smoker Questionnaires Covid-19 Vaccine Questionnaire Has patient been vacinated for Covid-19 Have you been vacinated for Covid-19: No PHQ-9 PHQ-2 Over the last 2 weeks, how often have you been bothered by any of the following problems? 1. Little interest or pleasure in doing things: not at all 2. Feeling down, depressed, or hopeless: not at all Total score: 0 PHQ-9 3. Trouble falling or staying asleep, or sleeping too much: Not at all 4. Feeling tired or having little energy: Not at all 5. Poor appetite or overeating: Not at all 6. Feeling bad about yourself - or that you are a failure or have let yourself or your family down: Not at all 7. Trouble concentrating on things, such as reading the newspaper or watching television: Not at all 8. Moving or speaking so slowly that other people could have noticed? - Or the opposite - being so fidgety or restless that you have been moving around a lot more than usual: not at all 9. Thoughts that you would be better off or of hurting yourself in some way: Not at all Total score: 0 Source: Developed by Drs. Patrick Nelson, Traci Gunter, Mayo Fang and colleagues, with an educational daphney from [employer]. Depression screen completed yes Social History Living Situation History Lives With: Family Housing: House Tobacco History Smoking Status: Never smoker Second Hand Smoke Exposure: No Alcohol History Alcohol Intake: Never Alcohol Intake Frequency: holidays/special occasions only Domestic Abuse History Do You Feel Safe at Home: Yes ANALYSIS LEAD: Past Medical History Past Medical History: No Hx Neurological Disorders, No Hx Cardiac Disorders, No Hx Cancer, No Hx Blood Disorders, No Hx Gastrointestinal Disorders, No Hx Renal Disease, No Hx Diabetes Mellitus Type 1 and No Hx Diabetes Mellitus Type 2 Care OB Visit Log OB Flowsheet Initial Weight: Not Recorded Date -?-?-?-?-?-?-?-?-?-?-?-?- EGA Weight BP Alb Glu CTX Pres Fundal ht FHR Mov Dilation Station Effacement Hx Notes Visit Note 11/13/24 -?-?-?-?-?-?-?-?-?-?-?-?- 17w 6d 73.992 kg 104/64 absent unknown 17 125 active 28-year-old 4 para 3 for OB check. Denies any SAB complaints. Reports slight movement. Nausea and vomiting are improved. Compliant with vitamins. Next [facility] visit December 03, 2024. aFP today. Return in 4 weeks OB check. UA:pro-,NIT-,francesca:trace 12/17/24 -?-?-?-?-?-?-?-?-?-?-?-?- 22w 5d 76.884 kg 101/63 absent unknown 22 155 active fetus active. no PTL complaints. denies bleeding,no ptl complaints ob panel. f/u mfm 02/16. discuss ptl symptom. increase fluid. 3rd tri lab [place] 02/17/25 -?-?-?-?-?-?-?-?-?-?-?-?- 31w 4d 78.075 kg 103/63 absent cephalic 30 145 active No OB complaints. Denies leaking bleeding or contractions. Reports good movement. Patient has a follow-up MFM appointment February 27. Patient declined Tdap today. No other OB complaints 3rd tri lab with A1c, f/u mfm 01/27/25. declined TDAP. discuss fkc. ptl precaution, hydrate. rtc 2 week 02/28/25 -?-?-?-?-?-?-?-?-?-?-?-?- 33w 1d 78.471 kg 108/68 absent cephalic 32 145 active No OB complaints. MFM appointment was in February 27. Reports good movement. Patient will do 3-hour GTT. I did discuss diet and GDM diet. Discussed kick count twice a day. I discussed GDM diet and weight. Patient to walk 40 minutes twice a day. Gave patient lab slip to do 3-hour GTT. Return in 2 weeks OB check 03/14/25 -?-?-?-?-?-?-?-?-?-?-?-?- 35w 1d 79.492 kg 105/64 occasional cephalic 34 145 active Reports good movement. Denies leaking, denies bleeding, denies contractions. 3-hour GTT is normal. Discussed GTT. Increase fluids. Discussed kick count twice a day. Discussed danger signs and symptoms ER precautions. GBS today 04/09/25 -?-?-?-?-?-?-?-?-?-?-?-?- 38w 6d 81.193 kg 111/69 occasional cephalic 38 145 active Denies leaking, denies bleeding, denies contractions. Reports good movement. Patient first day of disability was February 03, 2025. Patient assisted with disability forms. Discussed labor precautions. Discussed kick count. Discussed negative GBS. Return in 1 week OB DERREK Calculator Estimated Delivery Date Method Current WG Current Estimate 04/17/25 LMP (Uncertain) 38w 6d Other Estimates 04/20/25 Ultrasound #1 38w 3d 04/17/25 Ultrasound #2 38w 6d 04/17/25 Manual 38w 6d final derrek Expected Delivery Route/Plan vaginal Notes Visit Date: 04/09/25 Last Updated by: Barbara Bee CNM 04/09/25: GBS- Visit Date: 03/14/25 Last Updated by: Barbara Bee CNM 03/14: 3hr gtt wnl Visit Date: 02/28/25 Last Updated by: Barbara Bee CNM 02/26/25 sono: 32w6, EFW 48%, OB sono: A+, abs-, rpr;;nr, rub ni, HBSAG-,hiv-,HC-, GC/CT-, +ECOLI: tx with macrobid, 1hr gtt: 153 Visit Date: 12/17/24 Last Updated by: Barbara Bee CNM 28 yo. lmp 07/11/24. edc 04/17/25. NIPT and carrier screen wnl Office Procedures OB Clinic LOC & Office Proc's Nursing/Assessment Patient Status: Established Patient OB Clinic Nursing Assessment: Medication Reconciliation, Update PMH in EMR and Vital Signs OB Clinic Coordination of Care: Complex Care and Chronic Disease 1-5, Consent,records obtained, informed consent, Education Simp Pt/Fam, Lab and Imaging orders, Results/Orders obtained and Staff clarify orders Special Needs: Heart tones Established Patient Charge Established Patient Point Assignment: 135 Established Patient Point Charge: EP Level 4 (120-155) Assessment & Plan Diagnosis / Problem List (1) Encounter for supervision of normal in multigravida in third trimester: Status: Acute Plan Assist patient with disability. Discussed labor precautions and kick count. Discussed danger signs symptoms and ER precautions. Discussed GBS. Kick counts twice a day. And return in a week OB check Additional Plan Follow Up: 1 Week (obc)
== END 2025-04-09 15:17 | disposition home or self-care (01) ==
LOC: HODSOBC 14:31
PROVIDERS: Supervising Provider Advanced Practice Midwife; Visit Provider Advanced Practice Midwife
DX: Z34.83 Encounter for supervision of other normal pregnancy, third trimester (principal); Z3A.38 38 weeks gestation of pregnancy
CPT/HCPCS: 99214; G0463

== ENCOUNTER 2025-04-12 01:17 | Inpatient (IN) | payer MEDICAID, SELFPAY ==
[2025-04-12] VITALS (16 sets, daily range): BP systolic 100–128; BP diastolic 56–81; PULSE 53–67; RESP 14–100; TEMP 36.7–37.1; O2SAT 96–97; BMI 31.5
[2025-04-12] MEDS: RINGERS LACTATED 1000 ML 1,000 ML 100 ML IV (02:14)
[2025-04-12] MEDS: Ampicillin Inj 2,000 MG in SODIUM CHLORIDE 0.9% (POP) 100 ML 200 MG IV (02:14)
[2025-04-12 02:29] LABS: Amphetamine/Metham Scrn,Ur OB Negative (Negative); Benzoylecgonine Screen, Ur OB Negative (Negative); Opiate Screen,Urine OB Negative (Negative); THC Screen,Urine OB Negative (Negative)
[2025-04-12 02:34] LABS: Basophils # (Auto) 0.0 Thou/mm3 (0.0-0.2); Basophils % (Auto) 0 % (0-2.5); Eosinophils # (Auto) 0.1 Thou/mm3 (0.0-0.5); Eosinophils % (Auto) 1 % (0-10); Hematocrit 35.9 % (36.0-46.0); Hemoglobin 11.5 g/dL (12.0-16.0); Immature Granulocytes Auto 0.05 Thou/mm3 (0.00-0.00); Lymphocytes # (Auto) 3.3 Thou/mm3 (1.0-4.8); Lymphocytes % (Auto) 31 % (10-50); Mean Corpuscular HGB Conc 32.0 g/dl (31.0-37.0); Mean Corpuscular Hemoglobin 26.1 pg (25.0-35.0); Mean Corpuscular Volume 82 fL (80-100); Monocytes # (Auto) 0.9 Thou/mm3 (0.0-0.8); Monocytes % (Auto) 9 % (0-12); Neutrophils # (Auto) 6.3 Thou/mm3 (1.8-7.7); Neutrophils % (Auto) 59 % (37-80); Nucleated Red Blood Cell # 0.00 Thou/mm3 (0.00-0.00); Nucleated Red Blood Cell % 0 /100 WBC (0); Platelet Count 209 Thou/mm3 (140-440); RDW Standard Deviation 40.7 fL (36.4-46.3); Red Blood Count 4.40 Miln/mm3 (4.00-5.20); White Blood Count 10.7 Thou/mm3 (3.6-11.0)
[2025-04-12] MEDS: OXYTOCIN in NS 20 units 20 UNIT/1,000 ML BAG 125 UNIT IV (02:40)
--- NOTE | 2025-04-12 02:55 | PD.LDDELS ---
Data ([place]) Data Hx Section: No Maternal Blood Type: A Pos Rubella Titre: Negative RPR: Non-reactive Labs: Negative: RPR, Hepatitis B, HIV, Chlamydia, Gonorrhea and Group Beta Strep : 4 Term: 3 : 0 Livin Abortions: Spontaneous & Theraputic: 0 Delivery Data ([place]) Labor Data Initiation of labor: Spontaneous Induction/Augmentation Agent: None ROM date: 04/12/25 ROM time: 02:32 Amniotic membrane rupture type: Artificial Amniotic fluid description: Clear Delivery Data EDC: 04/17/25 EDC calculated by:: LMP/early US confirmation Date of arrival to unit: 04/12/25 Time of arrival to unit: 01:16 Onset of labor date: 04/11/25 Onset of labor time: 23:30 Complete dilation date: 04/12/25 Complete dilation time: 02:30 [place] delivery date: 04/12/25 [place] delivery time: 02:34 Gestational age (weeks): 39 Gestational age (days): 2 Placenta delivery date: 04/12/25 Placenta delivery time: 02:40 Stage 1 total time: Labor - Stage 1 Duration 3 hours and 0 minutes Delivered by: Layla Mae (OB Clinic) Delivery nurse[facility]AIN [facility] nurse: VIKKI RNC Dolly Operator at delivery: No Support person(s) at delivery: GRANDMOTHER Other staff at delivery: ZHENG RNC Delivery Method Delivery method: Normal Vaginal Delivery Presentation: Vertex position: OA Anesthesia Type Anesthesia Type: None Anesthesia type: None Delivery Room Medications Delivery room medications: Pitocin 20 u IV Placenta Placenta delivery description: Spontaneous Cord blood sent to lab: Yes cord blood collection: Cord Blood Type Episiotomy Episiotomy description: None EBL Estimated blood loss (ml): 50 Umbilical Cord cord description: 3 Vessels Additional Procedures The patient is a 29-year-old -0-0-3 with all care uncomplicated with the [facility] OB clinic with Barbara Bee CNM, who presented to triage in active labor 5 cm dilated at 0116 on 04/12/2025. Patient's group B strep status was unknown. One dose of ampicillin was ordered. The patient went on to rapidly progress to complete without the aid of any augmentation by 0230. I ruptured her bag approximately 0232. She then pushed through one contraction delivering a liveborn male at 0234. Findings: liveborn male in the [place]ALESKA presentation with no nuchal cord and no meconium .Apgars were 9 and 9 weight was 3270 g or approximately 7 pounds 3 ounces. The baby was vigorous at and placed immediately on mom's chest. Delayed cord clamping was performed for approximately 2 minutes. The cord was then clamped and cut and baby was kept on mother's chest. Cord blood was collected and cord gases were gave saved. The placenta was spontaneous, complete and grossly normal delivering within 5 minutes of the baby delivering. The patient delivered over an intact perineum. Complications were none. EBL was 50 cc. Complications Complications: none [place] Data ([place]) Lockwood Data Lockwood's gender: Male Identification band number: [id number] weight (gms): 3270 g Weight (pounds): 7 lbs and 3.3 ozs [place] length: 50.8 cm 1 minute: 9 5 minutes: 9
[2025-04-12 02:59] LABS: HIV (1&2) Antibody Rapid Non-Reactive
[2025-04-12] MEDS: IBUPROFEN TAB 400 MG TABLET 800 MG PO ×2 (02:59→16:09)
[2025-04-12] MEDS: BENZO/LANO/ALOE (Dermoplast) 60 GM CAN 1 SPRAY TOP (03:00)
--- NOTE | 2025-04-12 03:04 | PD.LDHP ---
Documentation for date of: 04/12/25 OB Labor/Induct. HPI History of Present Illness Chief complaint: Active labor : 4 Para: 3 Term pregnancies: 3 pregnancies: 0 Living children: 3 History of Abortions: Spontaneous and Elective: 0 History of Vaginal deliveries: 3 History of sections: No History of : No Date of last menstrual period: 07/11/24 DERREK: 04/17/25 Gestational Age (weeks): 39 Gestational Age (days): 2 Gestational age based on last menstrual period: 39 History of present illness: The patient is a 29-year-old -0-0-3 with all care uncomplicated with the [facility] women's clinic with Barbara Bee CNM who presented 5 cm dilated at 0116 on 04/17/2025. She was 39-2/7 weeks with an EDC of 04/17/2025 . She rapidly went on to progress to complete by 0230 and pushed through one contraction delivering a liveborn male at 0234. Of note, no GBBS was available on the chart and patient was given 1 dose of ampicillin prior to delivery. History of Present Dating criteria: LMP confirmed by 1st trimester US Adequate Care: Yes Ultrasounds: normal 1st trimester US and normal mid trimester US Obstetrical complications: none Medical complications: none Labs Maternal Blood Type: A Pos Labs: Negative: RPR, Hepatitis B, Rubella Titre, HIV, Chlamydia, Gonorrhea and Group Beta Strep and Unknown: Herpes Type 1, Herpes Type 2 and Covid-19 Past Medical History Surgical History SURGICAL: Negative Section Past Medical History Comments PMH COMMENT: Patient has a history of 3 uncomplicated vaginal deliveries. No significant past medical history. Meds Home Medications and Allergies Home Medications ?Medication ?Instructions ?Recorded ?Confirmed ?Type prenat.vits,zaria,qui-wrzx-tbjpp 1 tab PO QDAY 09/26/23 04/12/25 History Allergies Allergy/AdvReac Type Severity Reaction Status Date / Time No Known Allergies Allergy Verified 04/12/25 02:21 OB Exam Physical Exam Vital signs: Temp Pulse Resp BP 98.1 F 57 L 16 126/72 04/12/25 01:24 04/12/25 02:58 04/12/25 01:40 04/12/25 02:58 Detailed Labor and Delivery Exam Effacement (%): 80 Cervix position: mid station: -1 (BBOW) Consistency: soft Presentation: Vertex Membranes: intact Baseline heart rate: 140 monitor accelerations: 15x15 monitor decelerations: Early senior care variability: Average (6-10) Contraction frequency (min): Every 3 minutes Tachysystole: No Contraction intensity: Strong OB Results Labs 04/12/25 02:00 Labs: Short CBC 04/12/25 Range/Units 02:00 WBC 10.7 (3.6-11.0) Thou/mm3 Hgb 11.5 L (12.0-16.0) g/dL Hct 35.9 L (36.0-46.0) % Plt Count 209 (140-440) Thou/mm3 OB Assessment & Plan Assessment and Plan (1) Encounter for supervision of normal in multigravida in third trimester: Status: Acute Additional Plan Plan: anticipate NVD and GBS prophylaxis tx
[2025-04-12] MEDS: ACETAMINOPHEN 325 MG TABLET 650 MG PO ×2 (08:45→21:04)
[2025-04-12] MEDS: PRENATAL VITAMIN/FE FUM/FA TABLET 1 TAB PO (08:45)
[2025-04-12] MEDS: DOCUSATE SOD 100 MG CAPSULE PO ×2 (08:45→20:53)
[2025-04-12 09:40] LABS: Basophils # (Auto) 0.0 Thou/mm3 (0.0-0.2); Basophils % (Auto) 0 % (0-2.5); Eosinophils # (Auto) 0.0 Thou/mm3 (0.0-0.5); Eosinophils % (Auto) 0 % (0-10); Hematocrit 32.0 % (36.0-46.0); Hemoglobin 10.5 g/dL (12.0-16.0); Immature Granulocytes Auto 0.04 Thou/mm3 (0.00-0.00); Lymphocytes # (Auto) 2.1 Thou/mm3 (1.0-4.8); Lymphocytes % (Auto) 16 % (10-50); Mean Corpuscular HGB Conc 32.8 g/dl (31.0-37.0); Mean Corpuscular Hemoglobin 26.9 pg (25.0-35.0); Mean Corpuscular Volume 82 fL (80-100); Monocytes # (Auto) 0.6 Thou/mm3 (0.0-0.8); Monocytes % (Auto) 5 % (0-12); Neutrophils # (Auto) 9.9 Thou/mm3 (1.8-7.7); Neutrophils % (Auto) 78 % (37-80); Nucleated Red Blood Cell # 0.00 Thou/mm3 (0.00-0.00); Nucleated Red Blood Cell % 0 /100 WBC (0); Platelet Count 189 Thou/mm3 (140-440); RDW Standard Deviation 40.9 fL (36.4-46.3); Red Blood Count 3.91 Miln/mm3 (4.00-5.20); White Blood Count 12.7 Thou/mm3 (3.6-11.0)
--- NOTE | 2025-04-12 10:34 | PC.CC ---
Dolores Cody is a 29-year-old female admitted for labor and delivery care. Child And Adolescent Therapist made contact with Pt at bedside to complete ob assessment and discuss discharge disposition. Role and reason for the contact was explained to Pt. Demographic information was verified. Pt identified mother Susan Moreira [phone] as surrogate decision maker. Pt is independent with all ADLs, no source of DME. PCP is JOSÉ MANUEL. At time of discharge patient will return home, family will provide transportation. Mother plans on combo feeing, has car seat, and all supplies for baby. Mother denies any use of substance, no DV, no CPS. Mother reports support system provided by extended family. Discharge Plan: Home Next of Kin: mother Susan Moreira [phone] PCP: JOSÉ MANUEL
[2025-04-13 03:53] VITALS: BP 102/64; PULSE 60; RESP 17; TEMP 36.1; O2SAT 97
[2025-04-13 07:32] VITALS: BP 109/70; PULSE 60; RESP 16; TEMP 36.4; O2SAT 98
[2025-04-13] MEDS: PRENATAL VITAMIN/FE FUM/FA TABLET 1 TAB PO (07:56)
[2025-04-13] MEDS: IBUPROFEN TAB 400 MG TABLET 800 MG PO (07:56)
[2025-04-13] MEDS: DOCUSATE SOD 100 MG CAPSULE PO (07:56)
--- NOTE | 2025-04-13 08:10 | ESPR_ITS ---
Subjective Subjective Interval history: Delivery type: Patient doing well this morning. No acute complaints. Ambulating, tolerating p.o. and voiding without difficulty. HTN/Pre-Eclampsia screen: No chest pain, shortness of breath, headache, visual changes, epigastric or right upper quadrant pain. Breast-feeding, lochia diminishing. Bowel: Flatus+/ BM+ Exam Vital Signs Temp Pulse Resp BP Pulse Ox O2 Del Method 97.5 F 60 16 109/70 98 Room Air 04/13/25 07:04/13/25 07:32 04/13/25 07:32 04/13/25 07:32 04/13/25 07:32 04/13/25 07:32 Constitutional Constitutional: no acute distress Routine HEENT Exam Head: Present normocephalic and atraumatic Eye: Present EOMI and PERRL ENT: Present mucous membranes moist Routine Neck Exam Neck: Present supple and trachea midline Routine Respiratory Exam Respiratory: Present chest non-tender, lungs clear, normal breath sounds and no resp distress Routine Cardiovascular Exam Cardiovascular: Present RRR Routine Abdominal Exam Abdominal: Present soft and normoactive bowel sounds Routine Extremities Exam Extremities: Present full ROM Routine Skin Exam Skin: Present intact, dry and warm Routine Neurological Exam Neurological: Present alert, oriented X3 and CN II-XII intact Routine Psychiatric Exam Psychiatric: Present normal affect and normal thought process Objective Labs 04/12/25 08:54 Labs: Laboratory Results - last 24 hr 04/12/25 08:54 WBC 12.7 H RBC 3.91 L Hgb 10.5 L Hct 32.0 L MCV 82 MCH 26.9 MCHC 32.8 RDW Std Deviation 40.9 Plt Count 189 Neut % (Auto) 78 Lymph % (Auto) 16 [place] % (Auto) 5 Eos % (Auto) 0 Baso % (Auto) 0 Neut # (Auto) 9.9 H Lymph # (Auto) 2.1 [place] # (Auto) 0.6 Eos # (Auto) 0.0 Baso # (Auto) 0.0 Immature Gran # (Auto) 0.04 H Absolute Nucleated RBC 0.00 Immature Gran % 0 Nucleated RBC % 0 Assessment & Plan Problem List (1) Encounter for supervision of normal in multigravida in third trimester: Status: Acute (2) Vaginal delivery: Status: Resolved Assessment and plan: 1. Continue routine /post-op care 2. Labs reviewed, cbc appropriate 3. Remove dressing/Fay 4. Encourage to ambulate, shower 5. Encourage PO intake, breast feeding Time Spent With Patient Time: Total time spent is greater than 50% in coordination of care (as documented) at patient's floor/unit and/or counseling patient:
--- NOTE | 2025-04-13 08:11 | PD.LDDS ---
DS: Providers Provider Date of admission: 04/12/25 02:06 Primary care physician: Physician No Primary/Family Admitting Provider: Layla Mae MD (OB Clinic) Attending Provider on Admission: Kenneth Sanchez MD Consults: 04/12/25 03:15 Referral Routine Comment: Attending Provider on DC: Kenneth Sanchez MD Discharging Provider: Kenneth Sanchez MD DS: Diagnosis Discharge Diagnosis (1) Encounter for supervision of normal in multigravida in third trimester: Status: Acute Problem List Completed Was Problem List Reviewed/Reconciled?: Yes Summary/Hosp Course Brief History: The patient is a 29-year-old -0-0-3 with all care uncomplicated with the [facility] women's clinic with Barbara Bee CNM who presented 5 cm dilated at 0116 on 04/17/2025. She was 39-2/7 weeks with an EDC of 04/17/2025 . She rapidly went on to progress to complete by 0230 and pushed through one contraction delivering a liveborn male at 0234. Of note, no GBBS was available on the chart and patient was given 1 dose of ampicillin prior to delivery. Peripartum Data Delivery Method: Normal Vaginal Delivery Episiotomy Description: None Time Spent with Patient Time attestation: Total time spent providing and/or coordinating discharge services: Exam Vital Signs Temp Pulse Resp BP Pulse Ox O2 Del Method 97.5 F 60 16 109/70 98 Room Air 04/13/25 07:32 04/13/25 07:32 04/13/25 07:32 04/13/25 07:32 04/13/25 07:32 04/13/25 07:32 Discharge Plan Plan Patient Disposition: HOME (Self Care) Patient condition on transfer: Stable Prescriptions/Referrals Prescriptions/Med Rec: New docusate sodium 100 mg Capsule 100 mg PO QDAY 30 Days Qty: 30 0RF ibuprofen 600 mg tablet 600 mg PO Q6H MDD 4 PRN (Reason: fever or pain) 10 Days Qty: 40 0RF Continued PNV no.765-auxy-lxupt acid 28 mg iron- 800 mcg tablet 1 tab PO QDAY 90 Days Qty: 90 5RF prenat.vits,zaria,ihs-sdpd-xonwx Tablet 1 tab PO QDAY Referrals: Kenneth Sanchez MD [Physician, HOUSEKEEPING DEPARTMENT WORKER] No Primary/Family,Physician [Primary Care Provider] Patient/Caregiver Discharge Instructions Meds to Beds: Yes Education Materials: After a Vaginal , After Delivery [place] Concerns, Breast Care After , Incision Care After Vaginal , Nutrition While , Understanding Depression, : Caring for Yourself, Feel Healthy After Print Language: English Stand Alone Forms: Margarita Award Info., Patient Portal Info Letter Discharge Order Discharge Orders: Discharge (Routine); Ordered 04/13/25 Ordered By: Kenneth Sanchez Planned Discharge Date 04/13/25
--- NOTE | 2025-04-13 13:50 | PC.NURSE ---
around 1200 called lab to follow up on pending serology labs, according to lab, they will run the tests (RPR and Hep B) on monday, Aging Room Operator made aware and contacted Lab and asked them to follow up with their finance insurance manager since there is an agreement to complete these tests during weekend for [facility] patients.
[2025-04-13 15:25] VITALS: BP 100/64; PULSE 62; RESP 14; TEMP 36.8
--- NOTE | 2025-04-13 15:35 | PC.NURSE ---
verified with lab, results for serology labs will be ready around 1800
[2025-04-13 16:04] LABS: Hepatitis B Surface Antigen Non Reactive (Non React); Rubella, IgG Antibody Equivocal
[2025-04-13 16:11] LABS: Syphilis Nonreactive (Nonreactive)
--- NOTE | 2025-04-13 16:43 | PC.NURSE ---
patient declined MMR vaccine.
== END 2025-04-13 18:20 | disposition home or self-care (01) | DRG 560 ==
LOC: S4SX 04:52 → S4NX 04:52
PROVIDERS: Admitting Provider Obstetrics & Gynecology; Visit Provider Obstetrics & Gynecology
DX: O80 Encounter for full-term uncomplicated delivery (principal); Z3A.39 39 weeks gestation of pregnancy; Z37.0 Single live birth
CPT/HCPCS: 36415; 59409; 80307; 85025; 86703; 86762; 86780; 86850; 86900; 86901; 87340; J0290; J2590; J7120; A9270

== ENCOUNTER 2025-05-02 14:20 | Outpatient (AMB) | payer MEDICAID, SELFPAY ==
[2025-05-02 14:24] VITALS: BP 111/71; PULSE 74; RESP 16; TEMP 36; O2SAT 98; BMI 29.7
--- NOTE | 2025-05-02 14:24 | AMBOBPPN_ITS ---
Vital Signs 05/02/25 14:24 Height 1.6 m Height Method Stated Weight 75.977 kg Weight Measurement Method Standing Scale BMI 29.7 BP 111/71 Blood Pressure Source Automatic Cuff Blood Pressure Location Left Upper Arm Position Sitting Respiration 16 Pulse 74 Pulse Source Monitor Temp 96.8 F Temp Source Oral Pulse Oximetry (%) 98 Oxygen Delivery Method Room Air Allergies/Home Meds Allergies & Medications Allergies No Known Allergies Allergy (Verified 05/02/25 14:25) Medication Reconciliation prenat.vits,zaria,lhb-jquh-hnkun 1 tab PO QDAY 09/26/23 [History Confirmed 05/02/25] vitamins no.121-iron 28 mg-folic acid 800 mcg tablet 1 tab PO QDAY 90 days #90 tabs 09/27/24 [Rx Confirmed 05/02/25] docusate sodium 100 mg capsule 100 mg PO QDAY 30 days #30 caps 04/13/25 [Rx Confirmed 05/02/25] norethindrone (contraceptive) 0.35 mg tablet (Majo) 0.35 mg PO QDAY #84 tabs 05/02/25 [Rx] Intake Visit Data Collection New Patient or Established: Established Patient (seen at 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: Past Medical History Past Medical History: No Hx Neurological Disorders, No Hx Cardiac Disorders, No Hx Cancer, No Hx Blood Disorders, No Hx Gastrointestinal Disorders, No Hx Renal Disease, No Hx Diabetes Mellitus Type 1 and No Hx Diabetes Mellitus Type 2 Questionnaires Social History Living Situation History Marital Status: Single Lives With: Family Housing: House Tobacco History Smoking Status: Never smoker Second Hand Smoke Exposure: No Alcohol History Alcohol Intake: Never Alcohol Intake Frequency: holidays/special occasions only Domestic Abuse History Do You Feel Safe at Home: Yes EPDS - PP Depression Screening [place] Pospartum Depression Screen I have been able to laugh and see the funny side of things: (0) As much as I always could I have looked forward with enjoyment to things: (0) As much as I ever did I have blamed myself unnecessarily when things went wrong: (0) No, never I have been anxious or worried for no good reason: (0) No, not at all I have felt scared or panicky for no very good reason: (0) No, not at all Things have been getting on top of me: (0) No, I have been coping as well as ever I have been so unhappy that I have had difficulty sleeping: (0) No, not at all I have felt sad or miserable: (0) No, not at all I have been so unhappy that I have been crying: (0) No, never The thought of harming myself has occurred to me: (0) Never Total Score: EPDS Score: Referral is indicated for score of 9 or more, suicidal, or if provider believes patient is depressed regardless of score.: 0 EPDS completed yes Care OB Visit Log OB Flowsheet Initial Weight: Not Recorded Date -?-?-?-?-?-?-?-?-?-?-?-?- EGA Weight BP Alb Glu CTX Pres Fundal ht FHR Mov Dilation Station Effacement Hx Notes Visit Note 11/13/24 -?-?-?-?-?-?-?-?-?-?-?-?- 17w 6d 73.992 kg 104/64 absent unknown 17 125 active 28-year-old 4 para 3 for OB check. Denies any SAB complaints. Reports slight movement. Nausea and vomiting are improved. Compliant with vitamins. Next [facility] visit December 03, 2024. aFP today. Return in 4 weeks OB check. UA:pro-,NIT-,francesac:trace 12/17/24 -?-?-?-?-?-?-?-?-?-?-?-?- 22w 5d 76.884 kg 101/63 absent unknown 22 155 active fetus active. no PTL complaints. denies bleeding,no ptl complaints ob panel. f/u mfm 02/16. discuss ptl symptom. increase fluid. 3rd tri lab [place] 02/17/25 -?-?-?-?-?-?-?-?-?-?-?-?- 31w 4d 78.075 kg 103/63 absent cephalic 30 145 active No OB complaints. Denies leaking bleeding or contractions. Reports good movement. Patient has a follow-up MFM appointment February 27. Patient declined Tdap today. No other OB complaints 3rd tri lab with A1c, f/u mfm 01/27/25. declined TDAP. discuss fkc. ptl precaution, hydrate. rtc 2 week 02/28/25 -?-?-?-?-?-?-?-?-?-?-?-?- 33w 1d 78.471 kg 108/68 absent cephalic 32 145 active No OB complaints. MFM appointment was in February 27. Reports good movement. Patient will do 3-hour GTT. I did discuss diet and GDM diet. Discussed kick count twice a day. I discussed GDM diet and weight. Patient to walk 40 minutes twice a day. Gave patient lab slip to do 3-hour GTT. Return in 2 weeks OB check 03/14/25 -?-?-?-?-?-?-?-?-?-?-?-?- 35w 1d 79.492 kg 105/64 occasional cephalic 34 145 active Reports good movement. Denies leaking, denies bleeding, denies contractions. 3-hour GTT is normal. Discussed GTT. Increase fluids. Discussed kick count twice a day. Discussed danger signs and symptoms ER precautions. GBS today 04/09/25 -?-?-?-?-?-?-?-?-?-?-?-?- 38w 6d 81.193 kg 111/69 occasional cephalic 38 145 active Denies leaking, denies bleeding, denies contractions. Reports good movement. Patient first day of disability was February 03, 2025. Patient assisted with disability forms. Discussed labor precautions. Discussed kick count. Discussed negative GBS. Return in 1 week OB DERREK Calculator Estimated Delivery Date Method Current WG Current Estimate 04/17/25 LMP (Uncertain) 42w 1d Other Estimates 04/20/25 Ultrasound #1 41w 5d 04/17/25 Ultrasound #2 42w 1d 04/17/25 Manual 42w 1d final derrek Expected Delivery Route/Plan vaginal Notes Visit Date: 04/09/25 Last Updated by: Barbara Bee CNM 04/09/25: GBS- Visit Date: 03/14/25 Last Updated by: Barbara Bee CNM 03/14: 3hr gtt wnl Visit Date: 02/28/25 Last Updated by: Barbara Bee CNM 02/26/25 sono: 32w6, EFW 48%, OB sono: A+, abs-, rpr;;nr, rub ni, HBSAG-,hiv-,HC-, GC/CT-, +ECOLI: tx with macrobid, 1hr gtt: 153 Visit Date: 12/17/24 Last Updated by: Barbara Bee CNM 28 yo. lmp 07/11/24. edc 04/17/25. NIPT and carrier screen wnl HPI Interval History: 29-year-old 4 para 4 for 3-week . Patient had a vaginal April 12, 2025. A baby boy weighing 7 pounds. Is breast-feeding without difficulties. Reports being happy and denies depression. Siblings are adjusting. She has limited support and father baby is involved. Patient would like to start on control pills Delivery type: vaginal Was labor induced: no Gestational age at delivery (weeks): 39 Delivery date: 04/12/25 Delivering provider: [facility] Delivery complications: No Is patient : Yes Is patient sexually active: No Contraception planned: OCP Review of Systems Review of Systems ROS limited to current PARK ACTIVITIES COORDINATOR complaints: Yes Exam Narrative Physical exam: Normal heart rate and rhythm. Lungs clear no wheezes. Abdomen is soft nontender. Uterus well involuted. Perineum is intact no lacerations. No swelling. Small lochia. Negative Homans' sign. 2+ DTRs. No edema no swelli ng. Breasts are soft General Limitations: no limitations General Appearance: alert, in no apparent distress, comfortable, cooperative, healthy appearing, well developed and well groomed Head Head exam: atraumatic, normocephalic and normal inspection Chest Chest inspection: Present normal inspection and symmetric chest wall rise Resp Respiratory exam: Present normal lung sounds bilaterally Card Cardiovascular exam: Present regular rate, normal rhythm and normal heart sounds Abdominal Abdominal exam: Present soft and normal bowel sounds Extremities Extremities exam: Present normal inspection and full ROM Psych Psychiatric exam: Present normal affect and normal mood Office Procedures OBC Clinic LOC & Office Proc's Nursing/Assessment Patient Status: Established Patient OB Clinic Nursing Assessment: Medication Reconciliation, Update PMH in EMR and Vital Signs OB Clinic Coordination of Care: Consent,records obtained, informed consent, Education Simp Pt/Fam, Lab and Imaging orders, Results/Orders obtained and Staff clarify orders Established Patient Charge Established Patient Point Assignment: 80 Established Patient Point Charge: EP Level 3 (80-115) Assessment & Plan Diagnosis / Problem List (1) Routine Follow-Up: (2) 2 weeks follow-up: Status: Acute Plan Winter x 12. Start today. Reviewed method and side effects. Discussed ACHES. Condoms for 2 weeks. Continue prenatals. Walk 40 minutes a day. Discussed latching and breast-feeding positions. And return when she stops breast-feeding or as needed. Care Uterus involuted to: 3 below Perineal / incision healing noted: Yes Screened for depression: Yes Depression counseling provided: No Discussed family planning & contraception: Yes Contraception planned: OCP Counseling on safe resumption of sexual activity: Yes Counseling on gradual excercise: Yes Discussed and concerns (describe), provided support: Yes Referred to interactive media marketing specialist: No Counseled on good nutrition, hydration, and self care: Yes Reviewed vaccine status: No Chronic & current problems reconciled on problem list: Yes Infant care discussed; questions answered: feeding Follow up: routine/prn Additional counseling & anticipatory guidance provided: MAJO x 12, start today, review method and side effect and compliance. changed to combined pill when stop BF. condom x 2 week. continue PNV (FP) Tobacco Smoking Status: Never smoker
== END 2025-05-02 14:40 | disposition home or self-care (01) ==
LOC: HODSOBC 14:20
PROVIDERS: Supervising Provider Advanced Practice Midwife; Visit Provider Advanced Practice Midwife
DX: Z39.2 Encounter for routine postpartum follow-up (principal); Z39.1 Encounter for care and examination of lactating mother; Z30.011 Encounter for initial prescription of contraceptive pills
CPT/HCPCS: 99213; G0463